=== PATIENT | male | born 1955 | race Caucasian/White ===

== ENCOUNTER 2017-02-15 12:15 | Day surgery (SDC) | payer OTHER ==
[~2017-02-15] VITALS: Ht 182.9 cm; Wt 77.7 kg
[~2017-02-15 12:15] MED LIST: BUPR100T6 PO; BUS5 PO; CARV12.579 PO; DIAZ5TAB4 PO; DOXY100T20 PEG; FLUC100T PO; LD2VS100B MM; LISI20TA11 PO; LORA-441 PO; PANT40TA3 PO; TRAM50TA2 PO
[2017-02-15 12:53] VITALS: Ht 182.9 cm; Wt 77.7 kg
--- NOTE | 2017-02-15 17:20 | OPPN ---
Date/Time of Note Date/Time of Note DATE: 02/15/17 TIME: 17:17 Proc Note GI Procedure Date 02/15/17 Pre-procedure Diagnosis * Gastrostomy tube removal Post-procedure Diagnosis Impression: * Uneventful gastrostomy tube traction removal Plan: * Gastrostomy tube site care . Procedure Performed: Other (Gastrostomy tube removal) Surgeon STELLA PEÑA MD Paint Pourer none Tourniquet Time none EBL none Transfusion required none Biopsy 1: none Grafts/Implants none Tubes/Drains none Complication(s) none Pt Condition post procedure: stable Disposition: home Indications: other (Gastrostomy tube removal) Procedure Description The patient was placed in the supine position, the area of the gastrostomy tube was cleansed with Betadine. At this point we applied sustained traction to the gastrostomy tube which resulted in collapse of the mushroom inner part of the gastrostomy tube and resulted in removal of the gastrostomy tube. Slight oozing was noted at the site of the gastrostomy tube which subsided with gentle pressure. The area was cleansed with Betadine again and a clean dressing was applied. The patient was given instructions as to site care and expectations of closure in the next 72 hours. Copies To: CC: STELLA PEÑA MD, MORDO MD Feb 15, 2017 17:20
== END 2017-02-15 16:22 | disposition home or self-care (01) ==
LOC: GIL 12:15
PROVIDERS: ATTEND Internal Medicine Gastroenterology
DX: Z43.1 Encounter for attention to gastrostomy (principal)
CPT/HCPCS: 99211

== ENCOUNTER 2018-05-04 10:26 | Day surgery (SDC) | END 2018-05-04 16:07 | disposition home or self-care (01) ==

== ENCOUNTER 2018-07-20 15:45 | Emergency (ER) | payer MEDICARE, OTHER ==
[~2018-07-20] VITALS: Wt 75.7 kg
[~2018-07-20 15:45] MED LIST changes: -BUPR100T6 PO; -BUS5 PO; -DIAZ5TAB4 PO; -DOXY100T20 PEG; -FLUC100T PO; -LD2VS100B MM; +LEVOTHYROXINE; +LISI-471 PO; -LISI20TA11 PO; -LORA-441 PO; -TRAM50TA2 PO
--- NOTE | 2018-07-20 17:28 | ERD ---
ER Documentation Chief Complaint Chief Complaint persistently high BP today; on carvedilol, lisinopril, xanax. no ARRIAZA/ dizzy HPI 52-year-old male with a history of hypertension, throat cancer status post treatment, and anxiety presenting with high blood pressure noted today at home. He has been taking his medications like he normally does. However today after routinely checking his blood pressure, he noticed that it was higher than usual. He checked it throughout the day and it kept increasing which is why he came to the ED for evaluation. He denies any associated dizziness, headache, vision disturbance, chest pain, shortness of breath, focal weakness or numbness. He only states that he feels somewhat flushed. He did take an extra dose of losartan at home prior to arrival. He states this happens to him about once a year where his blood pressure goes up with unclear reasons. ROS All systems reviewed and are negative except as per history of present illness. Medications Home Meds Reported Medications Levothyroxine Sodium* (Levothyroxine Sodium*) 125 Mcg Tablet, 125 MCG PO BEFORE BREAKFAST, #30 TAB 07/20/18 Pantoprazole* (Pantoprazole*) 40 Mg Tablet.dr, 40 MG PO DAILY, TAB 07/20/18 Lisinopril* (Lisinopril*) 40 Mg Tablet, 20 MG PO DAILY, #30 TAB 07/20/18 Carvedilol* (Carvedilol*) 25 Mg Tablet, 12.5 MG PO BID, #60 TAB 07/20/18 Discontinued Reported Medications [Levothyroxine] No Conflict Check 05/04/18 Pantoprazole* (Protonix*) 40 Mg Tablet.dr, 40 MG PO DAILY, TAB 12/24/15 Carvedilol* (Carvedilol*) 12.5 Mg Tablet, 12.5 MG PO BID, #60 TAB 07/02/15 Lisinopril* (Lisinopril*) 20 Mg Tablet, 20 MG PO DAILY, #30 TAB 07/02/15 Allergies Allergies: Coded Allergies: Sulfa (Sulfonamide Antibiotics) (Verified Allergy, Severe, 07/20/18) PMhx/Soc History of Surgery: Yes (Exploratory laparotomy for perforated gastric ulcer) Anesthesia Reaction: No Hx Neurological Disorder: No Hx Respiratory Disorders: No Hx Cardiac Disorders: Yes (Hypertension) Hx Psychiatric Problems: No Hx Miscellaneous Medical Probl: Yes (Throat cancer status post treatment, gastric ulcer) Hx Alcohol Use: Yes (PT STATES HE QUIT 'YEARS AGO') Hx Substance Use: No Hx Tobacco Use: No Smoking Status: Former smoker FmHx Family History: No diabetes Physical Exam Vitals Vital Signs Date Temp Pulse Resp B/P (MAP) Pulse Ox O2 O2 Flow FiO2 Time Delivery Rate 07/20/18 88 18 141/94 99 Room Air 18:51 (110) 07/20/18 97.9 91 20 209/126 99 15:49 (153) Physical Exam Const: No acute distress, nontoxic Head: Atraumatic Eyes: Normal Conjunctiva ENT: Normal External Ears, Nose and Mouth. Neck: Full range of motion. No meningismus. No JVD Resp: Clear to auscultation bilaterally Cardio: Regular rate and rhythm, no murmurs. 2+ distal pulses in all 4 extremities Abd: Soft, non tender, non distended. Normal bowel sounds Skin: No petechiae or rashes Back: No midline or flank tenderness Ext: No cyanosis, or edema Neur: Awake and alert, normal speech, cranial nerves intact, strength and sensations intact in all 4 extremities Psych: Normal Mood and Affect Result Diagram: 07/20/18 1743 07/20/18 1743 Results 24 hrs Laboratory Tests Test 07/20/18 17:43 White Blood Count 4.6 10^3/ul Red Blood Count 4.74 10^6/ul Hemoglobin 13.8 g/dl Hematocrit 42.6 % Mean Corpuscular Volume 89.9 fl Mean Corpuscular Hemoglobin 29.1 pg Mean Corpuscular Hemoglobin Concent 32.4 g/dl Red Cell Distribution Width 13.2 % Platelet Count 149 10^3/UL Mean Platelet Volume 11.7 fl Immature Granulocytes % 0.200 % Neutrophils % 77.0 % Lymphocytes % 11.2 % Monocytes % 9.6 % Eosinophils % 1.8 % Basophils % 0.2 % Nucleated Red Blood Cells % 0.0 /100WBC Immature Granulocytes # 0.010 10^3/ul Neutrophils # 3.5 10^3/ul Lymphocytes # 0.5 10^3/ul Monocytes # 0.4 10^3/ul Eosinophils # 0.1 10^3/ul Basophils # 0.0 10^3/ul Nucleated Red Blood Cells # 0.0 10^3/ul Sodium Level 138 mmol/L Potassium Level 4.3 mmol/L Chloride Level 103 mmol/L Carbon Dioxide Level 28 mmol/L Anion Gap 7 Blood Urea Nitrogen 20 mg/dl Creatinine 0.73 mg/dl Est Glomerular Filtrat Rate mL/min > 60 mL/min Glucose Level 101 mg/dl Calcium Level 10.6 mg/dl Troponin I < 0.012 ng/ml Current Medications Medications Dose Sig/Chelsy Start Time Status Last (Trade) Ordered Route PRN Stop Time Admin Dose Reason Admin Nicardipine 30 mg ONCE ONCE 07/20/18 DC 07/20/18 HCl PO 17:30 07/20/18 17:36 (Cardene) 17:31 Procedures/MDM EMERGENT LABS AND DIAGNOSTIC STUDIES: Lab Results above were reviewed and interpreted by me. CBC: no anemia or evidence of infection BMP: No evidence of electrolyte abnormality, renal failure, hypoglycemia 12-lead EKG was interpreted by Andressa Ryder MD: Normal Sinus Rhythm with ventricular rate of 79 beats per minute Normal axis Normal intervals No arrhythmia, no acute ST or T wave changes suggestive of acute ischemia or STEMI. Initial Nursing notes reviewed. Previous Medical Records requested via the Electronic Health Record. EMERGENCY DEPARTMENT COURSE / MEDICAL DECISION MAKING: Patient is presenting with asymptomatic hypertension. Vitals were notable for a systolic blood pressure of over 200 and diastolic over 120. Labs did not show any significant abnormalities. I do not suspect hypertensive emergency. Oral Cardene was given with improvement of his blood pressure. He remained hemodynamically stable. Patient is stable for discharge and does not require admission or further workup. The patient was counseled about the risks of hypertension and urged to pursue outpatient monitoring and therapy within a week with their primary care physician. Departure Diagnosis: Primary Impression: Asymptomatic hypertensive urgency Condition: Stable SILAS RYDER MD Jul 20, 2018 17:28
[2018-07-20] MEDS ORDERED: NICARDipine HCL 30 MG CAPSULE PO ONE (17:30)
[2018-07-20] MEDS ORDERED: CARV25TA79 PO (18:22)
[2018-07-20] MEDS ORDERED: LISI40TA3 PO (18:22)
[2018-07-20] MEDS ORDERED: LEVO125T7 PO (18:23)
[2018-07-20] MEDS ORDERED: PANT40TA4 PO (18:23)
[2018-07-20 18:51] VITALS: BP 141/94; PULSE 88; RESP 18
== END 2018-07-20 18:52 | disposition home or self-care (01) ==
LOC: E/R 15:45
DX: I16.0 Hypertensive urgency (principal); Z85.818 Personal history of malignant neoplasm of other sites of lip, oral cavity, and pharynx; Z87.891 Personal history of nicotine dependence
CPT/HCPCS: 36415; 80048; 84484; 85025; 93005

== ENCOUNTER 2018-09-20 22:18 | Emergency (ER) | payer MEDICARE, OTHER ==
[~2018-09-20] VITALS: Wt 76.4 kg
[~2018-09-20 22:18] MED LIST changes: -CARV12.579 PO; +CARV25TA79 PO; +LEVO125T7 PO; -LEVOTHYROXINE; -LISI-471 PO; +LISI40TA3 PO; -PANT40TA3 PO; +PANT40TA4 PO
[2018-09-20 22:25] VITALS: BP 186/124; PULSE 128; RESP 20
== END 2018-09-20 22:45 | disposition left against medical advice (07) ==
LOC: E/R 22:18
DX: Z53.21 Procedure and treatment not carried out due to patient leaving prior to being seen by health care provider (principal)